=== PATIENT | male | born 1990 | race Hispanic/Latino ===

== ENCOUNTER 2022-09-17 21:14 | Emergency (ER) | payer BC ==
[~2022-09-17] VITALS: Ht 175.3 cm; Wt 96.6 kg
[2022-09-17 21:44] VITALS: BP 122/72
[2022-09-17] MEDS ORDERED: CEPH500B PO (21:49)
[2022-09-17] MEDS ORDERED: SULF1TAB42 PO (21:49)
== END 2022-09-17 22:04 | disposition home or self-care (01) ==
LOC: EDH 21:14
DX: L02.416 Cutaneous abscess of left lower limb (principal); R23.4 Changes in skin texture; Z90.49 Acquired absence of other specified parts of digestive tract

== ENCOUNTER 2023-11-26 01:24 | Emergency (ER) | payer BC ==
[~2023-11-26] VITALS: Ht 175.3 cm; Wt 99.8 kg
[~2023-11-26 01:24] MED LIST: CEPH500B PO; SULF1TAB42 PO
[2023-11-26] MEDS: DEXAMETHASONE SOD PHOSPHATE 4 MG/ML 1ML VIAL IVP ONE (01:56)
[2023-11-26] MEDS: APAP/CODEINE 120/12MG 5ML PO STA (01:56)
[2023-11-26 02:42] LABS: INFLUENZA TYPE A Negative For Type A (NEGATIVE); INFLUENZA TYPE B Negative For Type B (NEGATIVE)
[2023-11-26 02:43] LABS: SARS-CoV-2, RNA, NAAT POSITIVE SARS CoV-2 (NEGATIVE)
[2023-11-26] MEDS ORDERED: PRED10TA23 PO (02:57)
[2023-11-26] MEDS ORDERED: DOXY100C5 PO (02:57)
[2023-11-26] MEDS ORDERED: LORA10TA7 PO (02:57)
[2023-11-26 03:02] VITALS: BP 130/68; PULSE 88; RESP 16; O2SAT 95
== END 2023-11-26 03:20 | disposition home or self-care (01) ==
LOC: EDH 01:24
DX: U07.1 COVID-19 (principal); Z90.49 Acquired absence of other specified parts of digestive tract
CPT/HCPCS: 99284; 96374; 71045; 87635; 87804 ×2; J1100

== ENCOUNTER 2024-05-23 17:22 | Emergency (ER) | payer BC, OTHER ==
[~2024-05-23] VITALS: Ht 175.3 cm; Wt 99.8 kg
[~2024-05-23 17:22] MED LIST changes: +DOXY100C5 PO; +LORA10TA7 PO; +PRED10TA23 PO
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
[2024-05-23] MEDS: ibuPROFEN 800 MG TAB PO ONE (17:38)
[2024-05-23] MEDS ORDERED: IBUP-2077 PO (18:13)
[2024-05-23 18:17] VITALS: BP 131/60; PULSE 71; RESP 18; TEMP 98; O2SAT 97
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
== END 2024-05-23 18:22 | disposition home or self-care (01) ==
LOC: EDH 17:22
DX: S20.211A Contusion of right front wall of thorax, initial encounter (principal); Z79.52 Long term (current) use of systemic steroids; Z90.49 Acquired absence of other specified parts of digestive tract; V43.92XA Unspecified car occupant injured in collision with other type car in traffic accident, initial encounter; Y93.89 Activity, other specified; Y92.488 Other paved roadways as the place of occurrence of the external cause; Y99.8 Other external cause status
CPT/HCPCS: 71100; 99283

== ENCOUNTER 2024-10-13 20:03 | Emergency (ER) | payer BC ==
[~2024-10-13] VITALS: Ht 175.3 cm; Wt 99.3 kg
[~2024-10-13 20:03] MED LIST changes: +IBUP-2077 PO
[2024-10-13 21:31] LABS: BASOPHILS # (AUTO) 0.03 K/uL (0.00-0.20); BASOPHILS % (AUTO) 0.7 % (0.0-5.0); EOSINOPHILS # (AUTO) 0.02 K/uL (0.00-0.70); EOSINOPHILS % (AUTO) 0.5 % (0.0-8.0); HEMATOCRIT 47.2 % (42-54); LYMPHOCYTES # (AUTO) 1.1 K/uL (1.0-4.8); LYMPHOCYTES % (AUTO) 24.2 % (21.0-51.0); MEAN CORPUSCULAR HEMOGLOBIN 29.8 pg (27.0-33.0); MEAN CORPUSCULAR HGB CONC 33.3 g/dL (32.0-36.0); MEAN CORPUSCULAR VOLUME 89.6 fL (79-99); MONOCYTES # (AUTO) 1.3 K/uL (0.1-1.0); MONOCYTES % (AUTO) 30.3 % (3.0-13.0); NEUTROPHILS # (AUTO) 1.9 K/uL (1.8-7.7); NEUTROPHILS % (AUTO) 44.3 % (40.0-77.0); PLATELET COUNT (AUTO) 282 K/uL (130-400); RED BLOOD CELL COUNT(AUTO) 5.27 MIL/uL (4.50-6.20); RED CELL DISTRIBUTION WIDTH 13.4 % (11.0-15.5); WHITE BLOOD COUNT (AUTO) 4.3 K/uL (4.8-10.8)
--- NOTE | 2024-10-13 21:36 | ERN ---
ED Note History of Present Illness Stated Complaint: SORE THROAT,FEVER Chief Complaint: Sore Throat Time Seen by MD: 20:43 Dictation: Patient is a 34-year-old male who presents to the ER complaining of sore throat, fever 104, symptoms started earlier this morning. Allergies: Coded Allergies: No Known Drug Allergies (Unverified Allergy, Unknown, 09/17/22) Home Meds Active Scripts Ibuprofen (Ibuprofen 800 mg Tab) 800 Mg Tab, 800 MG PO Q8H PRN for fever or pain, #30 TAB 0 Refills Prov:ESTEVAN DUBON LANGUAGE ARTS TEACHER 05/23/24 Loratadine (Loratadine) 10 Mg Tablet, 10 MG PO DAILY for 30 Days, #30 TAB Prov:CHARITY BLACKMON MD 11/26/23 Doxycycline Hyclate (Doxycycline Hyclate) 100 Mg Capsule, 100 MG PO BID for 7 Days, #14 CAP Prov:CHARITY BLACKMON MD 11/26/23 Prednisone (Prednisone) 10 Mg Tab.ds.pk, 10 MG PO BID for 7 Days, #1 BOTTLE Prov:CHARITY BLACKMON MD 11/26/23 Sulfamethoxazole/Trimethoprim (Bactrim Ds Tablet) 1 Each Tablet, 1 TAB PO BID for 7 Days, #14 TAB 0 Refills Prov:JAY LEGER 09/17/22 Cephalexin Monohydrate (Keflex) 500 Mg Cap, 500 MG PO QID for 7 Days, #28 CAP Prov:JAY LEGER 09/17/22 Past Medical History Past Medical History: No Pertinent History Surgical History: Appendectomy Review of System Dictation NEGATIVE EXCEPT PER HPI Constitutional: Reports fever and sore throat Eyes: Negative for injury, pain,redness, and discharge ENT: Negative for injury,pain or swelling Cardiovascular: denies chest pain, palpitations, and edema Respiratory: Negative for shortness of breath, cough, and wheezing, Abdomen/GI: Negative for abdominal pain, nausea, vomiting, diarrhea, and constipation Back: Negative for injury and pain : Negative for injury, bleeding and discharge MS/Extremity: Negative for injury and deformity Skin: Negative for rash, and discoloration Neuro: Negative for headache, weakness, numbness, tingling, and seizure Psych: Negative for suicide ideation, homicidal ideation, and hallucinations Initial Vital Sign VS Vital Signs Date Time Temp Pulse Resp B/P (MAP) Pulse Ox O2 Delivery O2 Flow Rate FiO2 10/13/24 21:13 102.4 106 20 129/80 98 Room Air 10/13/24 21:50 0 21 Physical Exam Dictation General: awake, alert, NAD Head/Face: Normocephalic, atraumatic Eyes: PERRL, EOMI, vision at baseline ENT: oral cavity clear, TMs clear, no signs of infection Neck: Trachea midline, supple, no nuchal rigidity Cardiovascular: RRR, normal S1/S2, No MRGs, no JVD Respiratory: CTAB, no respiratory distress, No rales or wheezes Abdomen: Soft , no tender Skin: Warm, dry, normal turgor, no rash MS/Extremity: Pulses equal, no cyanosis, neurovascular intact, FROM Neuro: COAx4, GCS 15, strength 5/5, CN 2-12 intact, normal cerebellar exam, normal gait, Psych: Normal behavior, mood, and affect normal Results (Laboratory/Radiology) Laboratory/Radiology Laboratory Tests Test 10/13/24 21:17 10/13/24 21:25 Influenza Type A Antigen Negative For Type A Influenza Type B Antigen Negative For Type B SARS-CoV-2 Antigen (Rapid) PRESUMPTIVE NEGATIVE Group A Streptococcus Rapid negative (NEGATIVE) White Blood Count 4.3 K/uL (4.8-10.8) L Red Blood Count 5.27 MIL/uL (4.50-6.20) Hemoglobin 15.7 g/dL (14.0-18.0) Hematocrit 47.2 % (42-54) Mean Corpuscular Volume 89.6 fL (79-99) Mean Corpuscular Hemoglobin 29.8 pg (27.0-33.0) Mean Corpuscular Hemoglobin Concent 33.3 g/dL (32.0-36.0) Red Cell Distribution Width 13.4 % (11.0-15.5) Platelet Count 282 K/uL (130-400) Mean Platelet Volume 9.4 fL (7.5-10.5) Immature Granulocyte % (Auto) 0.0 % (0-1) Neutrophils (%) (Auto) 44.3 % (40.0-77.0) Lymphocytes (%) (Auto) 24.2 % (21.0-51.0) Monocytes (%) (Auto) 30.3 % (3.0-13.0) H Eosinophils (%) (Auto) 0.5 % (0.0-8.0) Basophils (%) (Auto) 0.7 % (0.0-5.0) Neutrophils # (Auto) 1.9 K/uL (1.8-7.7) Lymphocytes # (Auto) 1.1 K/uL (1.0-4.8) Monocytes # (Auto) 1.3 K/uL (0.1-1.0) H Eosinophils # (Auto) 0.02 K/uL (0.00-0.70) Basophils # (Auto) 0.03 K/uL (0.00-0.20) Absolute Immature Granulocyte (auto 0.00 K/uL (0-1) Nucleated Red Blood Cells 0.0 % (0.0-0.19) White Cell Morphology Comment See comments Sodium Level 138 mmol/L (136-145) Potassium Level 4.1 mmol/L (3.5-5.1) Chloride Level 102 mmol/L (101-111) Carbon Dioxide Level 29 mmol/L (21-32) Blood Urea Nitrogen 10 mg/dL (7-18) Creatinine 0.9 mg/dL (0.5-1.3) Glomerular Filtration Rate Calc 115 mL/min (>90) Random Glucose 114 mg/dL (70-105) H Lactic Acid Level 1.6 mmol/L (0.8-2.5) Total Calcium 9.3 mg/dL (8.5-10.1) ED Course ED Course Orders Procedure Category Date Status Time Cbc With Differential LAB 10/13/24 Complete 21:08 Chest 1vw RAD 10/13/24 Taken 21:08 Lactic Acid LAB 10/13/24 Complete 21:08 Basic Metabolic Panel LAB 10/13/24 Complete 21:08 0.9%Nacl 1000ml (Ns PHA 10/13/24 Complete 1000ml) 21:30 Influenza Type A & B, LAB 10/13/24 Complete Rapid 21:08 Covid19 (Sars Antigen LAB 10/13/24 Complete Rapid) 21:08 Rapid (Group A Strep) LAB 10/13/24 Complete 21:08 Ceftriaxone 1g Vial PHA 10/13/24 Complete (Rocephine 1g Inj) 21:30 Acetaminophen 500mg PHA 10/13/24 Complete Tab (Tylenol 500mg T 22:00 Ibuprofen 600 Mg PHA 10/13/24 Complete Tablet (Motrin) 22:00 Urinalysis Profile LAB 10/13/24 Logged 22:27 Azithromycin PHA 10/13/24 Complete (Zithromax) 23:00 0.9%Nacl 1000ml (Ns PHA 10/13/24 Complete 1000ml) 23:30 Current Medications Medications (Trade) Dose Ordered Sig/Camilo Route PRN Reason Start Time Stop Time Status Last Admin Dose Admin Acetaminophen (TYLenol 500MG TAB) 500 mg ONCE ONCE PO 10/13/24 22:00 10/13/24 22:01 DC 10/13/24 21:51 Azithromycin (Zithromax) 500 mg ONCE ONCE PO 10/13/24 23:00 10/13/24 23:01 DC Ceftriaxone Sodium (ROCEphine 1G INJ) 1 gm ONCE ONCE IVPB 10/13/24 21:30 10/13/24 21:31 DC 10/13/24 22:11 Ibuprofen (moTRIN) 600 mg ONCE ONCE PO 10/13/24 22:00 10/13/24 22:01 DC 10/13/24 21:51 Sodium Chloride 1,000 ml @ 0 mls/hr ONCE ONCE IV 10/13/24 21:30 10/13/24 21:31 DC 10/13/24 21:52 Sodium Chloride 1,000 ml @ 0 mls/hr ONCE ONCE IV 10/13/24 23:30 10/13/24 23:31 DC Vital Signs Date Time Temp Pulse Resp B/P (MAP) Pulse Ox O2 Delivery O2 Flow Rate FiO2 10/13/24 23:27 100.0 83 16 132/69 96 Room Air* 0 21 10/13/24 21:51 100.2 10/13/24 21:51 100.2 10/13/24 21:50 100.2 98 18 162/78 96 Room Air* 0 21 10/13/24 21:13 102.4 106 20 129/80 98 Room Air Medical Decision Making MDM 34-year-old male who presented to the ER complaining of sore throat, and high- grade fever. Symptoms started today in the morning. Upper respiratory infection Possible COVID next possible Possible strep Possible pneumonia CBC, BNP, lactic acid Chest x-ray Flu and COVID test, strep test Tylenol, Motrin IV FLUIDS 2 L BOLUS GIVEN ALL THE STUDY ORDERED ABOVE WAS NEGATIVE. PLAN IS TO HYDRATE THE PATIENT AND DISCHARGED HOME WITH RECOMMENDATION TO FOLLOW UP WITH THE PRIMARY CARE PHYSICIAN NEXT 24 HOURS. DX & DISP Disposition: Discharge Departure Impression: Primary Impression: Upper respiratory infection Additional Impressions: Upper respiratory infection, viral, Dehydration Condition: Stable Scripts Acetaminophen (Tylenol) 500 Mg Tab 500 MG PO Q6HPRN, #30 TAB Prov: ELMA BRUNO MD 10/13/24 Ibuprofen (Ibuprofen) 600 Mg Tablet 600 MG PO Q6H PRN for PAIN, #15 TAB Prov: ELMA BRUNO MD 10/13/24 Additional Instructions: RETURN TO ER FOR ANY ACUTE OR WORSENING SYMPTOMS. FOLLOW-UP IN 1-2 DAYS WITH PRIMARY PROVIDER FOR RECHECK OF TODAY'S SYMPTOMS. Referrals: NONE (PCP) ELMA BRUNO MD October 13, 2024 21:36
[2024-10-13 21:42] LABS: CREATININE 0.9 mg/dL (0.5-1.3); POTASSIUM 4.1 mmol/L (3.5-5.1)
[2024-10-13 21:44] LABS: RAPID GROUP A STREP negative (NEGATIVE)
--- NOTE | 2024-10-13 21:50 | NUR ---
PT CARE ASSUMED AT THIS TIME
[2024-10-13 21:51] VITALS: TEMP 100.3
[2024-10-13] MEDS: acetaMINOPHEN 500 MG TABLET PO ONE (21:51)
[2024-10-13] MEDS: ibuPROFEN 600 MG TABLET PO ONE (21:51)
[2024-10-13 21:52] LABS: COVID19 (SARS ANTIGEN RAPID) PRESUMPTIVE NEGATIVE (NEGATIVE); INFLUENZA TYPE A Negative For Type A (NEGATIVE); INFLUENZA TYPE B Negative For Type B (NEGATIVE)
[2024-10-13] MEDS: 0.9%NACL 1000ML 1,000 ML IV ONE ×2 (21:52→23:39)
[2024-10-13] MEDS: cefTRIAXone 1G VIAL IVPB ONE (22:11)
[2024-10-13] MEDS ORDERED: ACET-66 PO (23:37)
[2024-10-13] MEDS ORDERED: IBUP-2070 PO (23:37)
[2024-10-13] MEDS: AZITHROMYCIN 250 MG TABLET PO ONE (23:38)
[2024-10-13 23:58] LABS: APPEARANCE,URINE CLEAR (CLEAR); BILIRUBIN,URINE NEGATIVE (NEGATIVE); COLOR,URINE LIGHT-YELLOW (YELLOW); GLUCOSE, URINE (UA) NEGATIVE (NEGATIVE); KETONES,URINE NEGATIVE (NEGATIVE); LEUKOCYTE ESTERASE ,URINE NEGATIVE Leu/uL (NEGATIVE); NITRATE,URINE NEGATIVE (NEGATIVE); OCCULT BLOOD,URINE SMALL (NEGATIVE); PROTEIN,URINE NEGATIVE (NEGATIVE); UROBILINOGEN,URINE 0.2 mg/dL (0.2-1.0)
[2024-10-14] LABS: ADD UA MICROSCOPIC YES
[2024-10-14 00:01] LABS: MUCUS,URINE RARE LPF (None Seen); SQUAMOUS EPITHELIAL CELL,UR RARE /HPF (0-2); WBC,URINE 0-1 /HPF (0-1)
[2024-10-14 00:15] VITALS: BP 121/61; PULSE 86; RESP 20; TEMP 98.1; O2SAT 95
[2024-10-14] MEDS ORDERED: AZIT250T9 PO (00:21)
--- NOTE | 2024-10-14 08:44 | HMCIMG ---
CHEST 1VW HISTORY: Pneumonia COMPARISON: 11/26/2023 FINDINGS: A frontal projection of the chest was obtained. No acute pulmonary infiltrates is seen. The heart is normal in size. Prominent interstitial markings are seen. No evidence of aortic calcification is seen. IMPRESSION: 1. No acute pulmonary infiltrate is seen.
== END 2024-10-14 00:44 | disposition home or self-care (01) ==
LOC: EDH 20:03
DX: J06.9 Acute upper respiratory infection, unspecified (principal); E86.0 Dehydration; Z79.52 Long term (current) use of systemic steroids; Z90.49 Acquired absence of other specified parts of digestive tract; Z20.822 Contact with and (suspected) exposure to COVID-19
CPT/HCPCS: 99284; 96374; 71045; 87426; 80048; 85025; 87880; 87804 ×2; 83605; 81001; 36415; J0696

== ENCOUNTER 2024-10-14 08:55 | Emergency (ER) | payer BC ==
[~2024-10-14] VITALS: Ht 175.3 cm; Wt 99.3 kg
[~2024-10-14 08:55] MED LIST changes: +ACET-66 PO; +AZIT250T9 PO; +IBUP-2070 PO
--- NOTE | 2024-10-14 09:37 | ERN ---
General Chief Complaint: Multiple Complaints Stated Complaint: SORE THROAT,FEVER,COUGH,PHLEGM Time Seen by MD: 08:59 History of Present Illness Initial Comments 34M presents for fever, sore throat, cough, and body aches x 24 hours. Partner has same symptoms. Patient was here yesterday, had blood work, CXR, neg swabs, diagnosed w/ viral URI/pharyngitis. Patient felt better last night upon leaving the ED, but now feels bad again. He did not take tylenol or ibuprofen at home prior to arrival. Allergies: Coded Allergies: No Known Drug Allergies (Unverified Allergy, Unknown, 09/17/22) Home Meds Active Scripts Azithromycin (Azithromycin) 250 Mg Tablet, 1 TAB PO AD for 5 Days, #6 TAB 0 Refills 2 the first day followed by 1 for days 2-5 Prov:ELMA BRUNO MD 10/14/24 Acetaminophen (Tylenol) 500 Mg Tab, 500 MG PO Q6HPRN, #30 TAB Prov:ELMA BRUNO MD 10/13/24 Ibuprofen (Ibuprofen) 600 Mg Tablet, 600 MG PO Q6H PRN for PAIN, #15 TAB Prov:ELMA BRUNO MD 10/13/24 Ibuprofen (Ibuprofen 800 mg Tab) 800 Mg Tab, 800 MG PO Q8H PRN for fever or pain, #30 TAB 0 Refills Prov:ESTEVAN DUBON NP 05/23/24 Loratadine (Loratadine) 10 Mg Tablet, 10 MG PO DAILY for 30 Days, #30 TAB Prov:CHARITY BLACKMON MD 11/26/23 Doxycycline Hyclate (Doxycycline Hyclate) 100 Mg Capsule, 100 MG PO BID for 7 Days, #14 CAP Prov:CHARITY BLACKMON MD 11/26/23 Prednisone (Prednisone) 10 Mg Tab.ds.pk, 10 MG PO BID for 7 Days, #1 BOTTLE Prov:CHARITY BLACKMON MD 11/26/23 Sulfamethoxazole/Trimethoprim (Bactrim Ds Tablet) 1 Each Tablet, 1 TAB PO BID for 7 Days, #14 TAB 0 Refills Prov:JAY LEGER 09/17/22 Cephalexin Monohydrate (Keflex) 500 Mg Cap, 500 MG PO QID for 7 Days, #28 CAP Prov:JAY LEGERP 09/17/22 Past Medical History Past Medical History: No Pertinent History Past Surgical History: Appendectomy ROS Dictation CONSTITUTIONAL: fever HEAD/FACE: No signs of trauma. EENT: sore throat RESPIRATORY: No cough, no orthopnea, no SOB, no stridor, no wheezing. CARDIOVASCULAR: No chest pain, no edema, no palpitations, no syncope. GASTROINTESTINAL/ABDOMINAL: No abdominal pain, no constipation, no diarrhea, no nausea, no vomiting. GENITOURINARY: No abnormal discharge, no dysuria, no frequent urination, no hematuria. No complaints of pain in the genitals. MUSCULOSKELETAL: No back pain, no gout, no joint pain, no joint swelling, no muscle pain, no muscle stiffness, no neck pain. INTEGUMENTARY: No change in color, no change in hair/nails, no dryness, no lesion, no lumps, no rash. NEUROLOGICAL/PSYCH: No anxiety, not depressed, no emotional problem, no headache, no numbness, no pre-existing deficit, no history of seizures, no tremors, no weakness. HEMATOLOGIC/LYMPHATIC: Not anemic, no history of blood clots, no apparent bleeding, no bruising, glands not swollen. All Systems Negative, Except as Noted. Physical Exam Physical Exam Dictation VITAL SIGNS: Reviewed. GENERAL APPEARANCE: Alert, oriented x3, no acute distress, obese. HEAD AND FACE: Non-traumatic. EYES: PERRL, pink conjunctivas, eyelid no trauma, anterior chamber clear. EARS: Pinnas intact and no signs of trauma or erythema. Ear canals clear and no discharge. TMs no erythema. NOSE: No discharge, no bleeding. OROPHARYNX: Mouth normal, teeth no caries, tongue pink. Pharynx clear, no erythema. Tonsils no exudates, no abscesses noted. Mucous membrane moist. NECK: Supple, non-tender, no thyromegaly, no masses, no JVD, no bruits. BREAST: Deferred. CHEST: No tenderness, no crepitus, no paradoxical movement, no retractions. LUNGS: Clear, well-ventilated, symmetric, no rales, no wheezing, no rhonchi, no stridor, good breath sounds bilaterally. HEART: Regular rate, regular rhythm, no murmur, no gallops. VASCULAR: No peripheral edema. ABDOMEN: Soft, positive bowel sounds, nondistended, no guarding, nontender, no rebound, no masses no hepatomegaly, no splenomegaly, no Elmore's sign, no hernias. RECTAL: Deferred. GENITAL: Deferred. NEUROLOGICAL: Normal speech, gross motor function intact, gross sensory function intact. MUSCULOSKELETAL: Neck nontender, full range of motion, back nontender, full range of motion. EXTREMITIES: Nontender, full range of motion. SKIN: Color pink, dry, no turgor, no rash, no lacerations, no abrasions, no c ontusions. LYMPHATICS: Deferred. MDM Vital signs stable Differential diagnosis viral URI Patient was just worked up less than 10 hours ago including blood work lactic acid chest x-ray and swabs. Symptoms are still consistent with a viral URI. We will give the patient a L of fluid and Toradol Patient will be DC with viral URI symptoms. ED Course Orders Procedure Category Date Status Time Lactated Ringers PHA 10/14/24 Complete 1000ml (Lactated 09:30 Ketorolac PHA 10/14/24 Complete Tromethamine 15mg/Ml 09:30 Acetaminophen 500mg PHA 10/14/24 Complete Tab (Tylenol 500mg T 09:30 Current Medications Medications (Trade) Dose Ordered Sig/Camilo Route PRN Reason Start Time Stop Time Status Last Admin Dose Admin Acetaminophen (TYLenol 500MG TAB) 1,000 mg ONCE ONCE PO 10/14/24 09:30 10/14/24 09:31 DC 10/14/24 10:31 Ketorolac Tromethamine (toRADol) 15 mg ONCE ONCE IV 10/14/24 09:30 10/14/24 09:31 DC 10/14/24 10:31 Lactated Ringer's 1,000 ml @ 0 mls/hr ONCE ONCE IV 10/14/24 09:30 10/14/24 09:31 DC 10/14/24 10:30 Vital Signs Date Time Temp Pulse Resp B/P (MAP) Pulse Ox O2 Delivery O2 Flow Rate FiO2 10/14/24 10:55 99.1 88 17 110/64 97 Room Air* 0 21 10/14/24 08:56 99.9 110 18 111/67 96 Room Air 0 DX & DISP Disposition: Discharge Departure Impression: Primary Impression: Upper respiratory infection Condition: Stable Additional Instructions: Your symptoms are consistent with a viral upper respiratory infection. Alternate Tylenol and ibuprofen as needed. Drink plenty of liquids. Follow up with the primary doctor. Referrals: MAYLIN BLANCHARD (PCP) VITOR BOYD DO October 14, 2024 09:37
[2024-10-14] MEDS: LACTATED RINGERS 1000ML 1,000 ML IV ONE (10:30)
[2024-10-14] MEDS: ketOROlac 15MG/ML VIAL (15MG/ML) IV ONE (10:31)
[2024-10-14] MEDS: acetaMINOPHEN 500 MG TABLET PO ONE (10:31)
[2024-10-14 11:31] VITALS: TEMP 99.1
[2024-10-14 12:32] VITALS: BP 119/68; PULSE 85; RESP 20; TEMP 99.1; O2SAT 96
--- NOTE | 2024-10-14 12:37 | NUR ---
DC PATIENT WAS DC'D BY DR BOYD TODAY, I DC'D PATIENTS IV WITH CATH STILL IN PLACE AND APPLIED 2X2 GAUZE WITH COBAN I EXPLAINED TO PATIENT TO FOLLOW UP WITH PCP, PROVIDED INFO BASED ON DIAGNOSIS, AND ANSWERED ANY FURTHER QUESTIONS PATIENT AMBULATED OUT OF ED, ACCOMPANIED BY , NO COMPLICATIONS
== END 2024-10-14 12:31 | disposition home or self-care (01) ==
LOC: EDH 08:55
DX: J06.9 Acute upper respiratory infection, unspecified (principal); B97.89 Other viral agents as the cause of diseases classified elsewhere; Z79.52 Long term (current) use of systemic steroids; Z90.49 Acquired absence of other specified parts of digestive tract; Z79.899 Other long term (current) drug therapy
CPT/HCPCS: 99284; 96374; 96361; J1885; J7120